=== PATIENT | female | born 1985 | race Caucasian/White ===

== ENCOUNTER 2020-07-06 16:09 | Emergency (ER) | payer OTHER ==
[~2020-07-06 16:09] MED LIST: CELEXA20 MG PO; IBUPROFEN600 MG PO; KEPPRA500 MG PO; KLONOPIN0.5 MG PO; NEURONTIN 300300 MG PO
== END 2020-07-06 17:20 | disposition left against medical advice (07) ==
LOC: ER1 16:09
DX: S09.90XA Unspecified injury of head, initial encounter (principal); W19.XXXA Unspecified fall, initial encounter; Z53.21 Procedure and treatment not carried out due to patient leaving prior to being seen by health care provider